=== PATIENT | female | born 1950 | race African-American/Black ===

== ENCOUNTER 2018-01-27 09:03 | Inpatient (IN) | payer MEDICARE, MEDICAID ==
[~2018-01-27] VITALS: Ht 162.6 cm; Wt 65.0 kg
[2018-01-27] MEDS ORDERED: METHYLPREDNISOLONE SOD SUCC 125 MG/2 ML VIAL IV STA (09:34)
[2018-01-27] MEDS ORDERED: LEVOFLOXACIN 750MG PREMIX 150 ML IV ONE (09:45)
[2018-01-27] MEDS ORDERED: IPRATROPIUM/ALBUTEROL 0.5-3(2.5)MG/3ML NEB HHN ONE (09:45)
[2018-01-27 10:00] LABS: BASOPHILS % 0.3 % (0.0-2.0); EOSINOPHILS % 0.1 % (0.0-5.0); HEMATOCRIT. 38.3 % (36.0-48.0); HEMOGLOBIN. 12.8 g/dL (12.0-16.0); MEAN CORPUSCULAR HEMOGLOBIN 29.3 pg (28.0-32.0); MEAN CORPUSCULAR VOLUME 87.7 fL (81.0-99.0); MEAN PLATELET VOLUME 8.9 fl (7.4-10.4); MONOCYTES % 12.4 % (2.0-8.0); NEUTROPHILS % 67.2 % (40.0-76.0); PLATELET 200 x1000/uL (130-400); RED BLOOD CELL COUNT 4.37 mill/uL (4.2-5.4); RED CELL DISTRIBUTION WIDTH 13.2 % (11.6-14.6)
[2018-01-27 10:01] LABS: BG BASE EXCESS 0.3 mmol/L (-2.0-2.0); BG CARBOXYHEMOGLOBIN 1.4 % (0.5-1.5); BG DEOXYHEMOGLOBIN 11.5 % (0.0-5.0); BG HCO3 ACT 24.8 mmol/L (22.0-26.0); BG METHEMOGLOBIN 0.3 % (0.0-1.5); BG OXYGEN SATURATION 88.3 % (92.0-98.5); BG OXYHEMOGLOBIN 86.8 % (94.0-97.0); BG PCO2 39.6 mmHg (35.0-45.0); BG PH 7.415 (7.350-7.450); BG PO2 53.1 mmHg (75.0-100.0); BG SAMPLE SITE RIGHT RADIAL; BG TOTAL HEMOGLOBIN 13.1 g/dL (12.0-18.0); BG VENT MODE ROOM AIR
[2018-01-27 10:08] LABS: CHLORIDE 104 mEq/L (98-107); PARTIAL THROMBOPLASTIN TIME 29.2 sec (23.4-31.0)
[2018-01-27 10:11] LABS: ETHANOL BLOOD < 10 mg/dL
[2018-01-27 11:52] LABS: CLARITY URINE CLOUDY (CLEAR); COLOR URINE YELLOW (YELLOW); KETONES URINE 2+ (NEGATIVE); LEUKOCYTE ESTERASE URINE 2+ (NEGATIVE); NITRITE URINE POSITIVE (NEGATIVE); OCCULT BLOOD URINE 2+ (NEGATIVE); PH URINE 7.5 (4.5-8.0); PROTEIN URINE 2+ (NEGATIVE); SPECIFIC GRAVITY URINE 1.016 (1.005-1.030)
[2018-01-27 12:27] LABS: *AMPHETAMINES SCREEN URINE NEGATIVE (NEGATIVE)
[2018-01-27 12:28] LABS: *BARBITURATES SCREEN URINE NEGATIVE (NEGATIVE); *BENZODIAZEPINES SCREEN URINE NEGATIVE (NEGATIVE); *COCAINE SCREEN URINE NEGATIVE (NEGATIVE)
[2018-01-27 12:30] LABS: METHADONE URINE SCREEN NEGATIVE (NEGATIVE)
[2018-01-27 12:31] LABS: CANNABINOID URINE SCREEN PRESUMTIVE POSITIVE (NEGATIVE); OPIATES URINE SCREEN NEGATIVE (NEGATIVE); PHENCYCLIDINE URINE SCREEN NEGATIVE (NEGATIVE)
[2018-01-27 20:00] VITALS: BP 177/102
[2018-01-27] MEDS ORDERED: ZOLPIDEM TARTRATE 5MG TABLET PO PRN (22:00)
[2018-01-27] MEDS ORDERED: HYDROCODONE/ACETAMINOPHEN 5/325MG TABLET PO PRN (22:00)
[2018-01-27] MEDS ORDERED: IPRATROPIUM/ALBUTEROL 0.5-3(2.5)MG/3ML NEB HHN PRN ×2 (22:00)
[2018-01-27] MEDS ORDERED: CLONIDINE 0.1MG TABLET PO PRN (23:15)
[2018-01-27] MEDS: AMLODIPINE 10MG TABLET PO SCH (23:43)
[2018-01-27] MEDS: KCL 10MEQ/50ML PREMIX 50 ML IV SCH (23:44)
[2018-01-27] MEDS: METHYLPREDNISOLONE SOD SUCC 40 MG/ML VIAL IV SCH (23:44)
[2018-01-28] VITALS: BP 175/96
[2018-01-28] MEDS: IPRATROPIUM/ALBUTEROL 0.5-3(2.5)MG/3ML NEB HHN SCH ×4 (01:04→14:10)
[2018-01-28] MEDS: KCL 10MEQ/50ML PREMIX 50 ML IV SCH ×3 (01:05→03:30)
[2018-01-28 04:00] VITALS: BP 159/93
[2018-01-28] MEDS: METHYLPREDNISOLONE SOD SUCC 40 MG/ML VIAL IV SCH (06:20)
[2018-01-28 07:10] LABS: BASOPHILS % 0.1 % (0.0-2.0); HEMATOCRIT. 36.2 % (36.0-48.0); HEMOGLOBIN. 12.1 g/dL (12.0-16.0); LYMPHOCYTES % 12.5 % (20.0-50.0); MEAN CORPUSCULAR VOLUME 86.9 fL (81.0-99.0); MEAN PLATELET VOLUME 9.3 fl (7.4-10.4); MONOCYTES % 5.1 % (2.0-8.0); NEUTROPHILS % 82.3 % (40.0-76.0); PLATELET 194 x1000/uL (130-400); RED BLOOD CELL COUNT 4.17 mill/uL (4.2-5.4); RED CELL DISTRIBUTION WIDTH 13.3 % (11.6-14.6)
[2018-01-28] MEDS: AMLODIPINE 10MG TABLET PO SCH (08:37)
[2018-01-28] MEDS ORDERED: BUDESONIDE 0.5MG/2ML NEB HHN SCH (09:00)
[2018-01-28 09:44] LABS: CHLORIDE 107 mEq/L (98-107)
[2018-01-28] MEDS ORDERED: LEVOFLOXACIN 500MG PREMIX 100 ML IV SCH (11:00)
[2018-01-28 12:00] VITALS: BP 156/89
[2018-01-28] MEDS ORDERED: LOSARTAN POTASSIUM 100 MG TABLET PO SCH (13:00)
[2018-01-28 15:22] VITALS: BP 154/89
[2018-01-28] MEDS ORDERED: GUAIFENESIN 600MG ER TABLET PO SCH (21:00)
[2018-01-29] MEDS ORDERED: PREDNISONE 20MG TABLET PO SCH (09:00)
== END 2018-01-28 17:15 | disposition home or self-care (01) | DRG 720 ==
LOC: ER 09:13 → 8WST 13:11 → EDBEDREQ 13:13 → ENRESERV 19:30
PROVIDERS: ADMIT Internal Medicine; ATTEND Internal Medicine
DX: A41.9 Sepsis, unspecified organism (principal); J96.00 Acute respiratory failure, unspecified whether with hypoxia or hypercapnia; E87.6 Hypokalemia; I16.0 Hypertensive urgency; N39.0 Urinary tract infection, site not specified; I10 Essential (primary) hypertension; F12.90 Cannabis use, unspecified, uncomplicated; F17.210 Nicotine dependence, cigarettes, uncomplicated; J44.1 Chronic obstructive pulmonary disease with (acute) exacerbation; I49.3 Ventricular premature depolarization; Z71.6 Tobacco abuse counseling
CPT/HCPCS: 36415; 36600; 71045; 80048; 80305; 82375; 82805; 83605; 83880; 84484; 87077; 87186; 93005; 94640; 96365; 96375; 99285; C1893; G0482; J1956; J2920; J2930; J3480; J7040; J7620; J7626